=== PATIENT | female | born 1970 | race Two or more races ===

== ENCOUNTER 2019-09-18 02:08 | Emergency (ER) | payer SELFPAY ==
[~2019-09-18] VITALS: Ht 157.5 cm; Wt 69.9 kg
[2019-09-18 02:50] VITALS: BP 131/69
[2019-09-18] MEDS ORDERED: predniSONE 10 MG TABLET PO ONE (03:30)
[2019-09-18] MEDS ORDERED: FAMOTIDINE 20 MG TABLET. PO ONE (03:30)
[2019-09-18] MEDS ORDERED: FAMO-63 PO (03:31)
[2019-09-18] MEDS ORDERED: PRED50TA PO (03:31)
--- NOTE | 2019-09-19 03:25 | PHYS DOC ---
Past Medical History Past Medical History: High Cholesterol, Hypertension Past Surgical History: Other Additional Past Surgical Histo: LUMPECTOMY RT BREAST Alcohol Use: None Drug Use: None Adult General Chief Complaint Chief Complaint: ALLERGIC REACTION HPI HPI Patient is a 49 year old female who presents with acute onset hives. No dyspnea several hours prior ED arrival. Patient with sporadic hives over her face, torso and extremities. No shortness of breath, wheezing. No oral airway swelling. No other acute symptoms or complaints [ Review of Systems Review of Systems Is as per history of present illness. All other review symptoms are negative. All other systems were reviewed and found to be within normal limits, except as documented in this note. Current Medications Current Medications Current Medications Medications (Trade) Dose Ordered Sig/Lisandro Start Time Stop Time Status Last Admin Dose Admin Famotidine (Pepcid) 40 mg 1X ONCE 09/18/19 03:30 09/18/19 03:31 DC 09/18/19 03:20 40 MG Prednisone (Prednisone) 50 mg 1X ONCE 09/18/19 03:30 09/18/19 03:31 DC 09/18/19 03:20 50 MG Allergies Allergies Allergies Coded Allergies Type Severity Reaction Last Updated Verified No Known Drug Allergies 09/18/19 No Physical Exam Physical Exam Constitutional: Well developed, well nourished, no acute distress, non-toxic appearance. [] HENT: Normocephalic, atraumatic, bilateral external ears normal, oropharynx moist, no oral exudates, nose normal. [] Eyes: PERRLA, EOMI, conjunctiva normal, no discharge. [] Neck: Normal range of motion, no tenderness, supple, no stridor. [] Cardiovascular:Heart rate regular rhythm, no murmur [] Lungs & Thorax: Bilateral breath sounds clear to auscultation [] Abdomen: Bowel sounds normal, soft, no tenderness. [] Skin: Diffuse hives of face, torso and extremities. [] Back: No tenderness, no CVA tenderness. [] Extremities: No tenderness, no edema. [] Neurologic: Alert and oriented X 3, normal motor function, normal sensory function, no focal deficits noted. [] Psychologic: Affect normal, judgement normal, mood normal. [] Current Patient Data Vital Signs Vital Signs Date Time Temp Pulse Resp B/P (MAP) Pulse Ox O2 Delivery O2 Flow Rate FiO2 09/18/19 02:50 98.0 72 18 131/69 (89) 98 Room Air 98.0 EKG EKG [] Radiology/Procedures Radiology/Procedures [] Course & Med Decision Making Course & Med Decision Making Pertinent Labs and Imaging studies reviewed. (See chart for details) [Prednisone and Pepcid given with symptomatic improvement. Recommend supportive care, watchful waiting and PCP follow-up..] Dragon Disclaimer Dragon Disclaimer This electronic medical record was generated, in whole or in part, using a voice recognition dictation system. Departure Departure Impression: Primary Impression: Hives Additional Impression: Allergic reaction Disposition: HOME, SELF-CARE Condition: GOOD Referrals: NO PCP (PCP) Patient Instructions: Hives, [id number] Additional Instructions: Please take daily prescribed medications as directed take 50 mg of Benadryl every 8 hours as needed for itching. Follow up with PCP in 2-3 days for reevaluation. Return to the ED if new or worsening symptoms. Scripts Famotidine (PEPCID) 20 Mg Tablet 20 MG PO BID, #20 TAB Prov: ARLENE PRIEST DO 09/18/19 Prednisone (PREDNISONE) 50 Mg Tablet 1 TAB PO DAILY, #5 TAB Prov: ARLENE PRIEST DO 09/18/19 Problem Qualifiers ARLENE PRIEST DO Sep 19, 2019 03:25
== END 2019-09-18 03:41 | disposition home or self-care (01) ==
LOC: ER 02:08
DX: L50.0 Allergic urticaria (principal); E78.00 Pure hypercholesterolemia, unspecified; I10 Essential (primary) hypertension; Z90.89 Acquired absence of other organs
CPT/HCPCS: 99283; J7512